=== PATIENT | male | born 1945 | race Two or more races ===

== ENCOUNTER 2017-05-26 12:09 | Outpatient (CLI) | payer MEDICARE ==
--- NOTE | 2017-05-26 13:23 | Diagnostic Imaging Report ---
Indication: Cough Technique: 2 views of the chest Comparison: none Findings: The lungs and pleural spaces are clear. Heart size is normal. Aorta is tortuous. There is fusion hardware at the cervicothoracic junction. There is also lumbar spine fusion hardware. There is a compression fracture deformity of the T12 vertebral body. Impression: No acute process Findings as noted
== END 2017-05-26 14:09 | disposition home or self-care (01) ==
LOC: RAD 12:09
DX: R05 Cough (principal); S22.080G Wedge compression fracture of T11-T12 vertebra, subsequent encounter for fracture with delayed healing; X58.XXXD Exposure to other specified factors, subsequent encounter
CPT/HCPCS: 71046